=== PATIENT | female | born 1945 | race Caucasian/White ===

== ENCOUNTER 2020-04-14 14:16 | Inpatient (IN) ==
[2020-04-14] MEDS ORDERED: SODIUM CHLORIDE 0.9% 500 ML IV STA ×2 (14:54→15:58)
[2020-04-14] MEDS ORDERED: ONDANSETRON 4 MG/2 ML VIAL IV ONE (14:54)
[2020-04-14 15:14] LABS: Basophils % 0.1 % (0.0-0.8); Hematocrit 39.2 VOL% (35.7-47.0); Hemoglobin 12.7 GM/DL (12.0-16.0); Immature Granulocytes % 0.6 %; Immature Granulocytes Absolute 0.05 #; Lymphocytes # 1.4 10*3/uL (1.4-4.0); Mean Corpuscular HGB Conc 32.4 GM/DL (32-36); Mean Corpuscular Volume 97.3 FL (87-102); Mean Platelet Volume 9.4 FL (9.6-12.0); Monocytes % 5.2 % (1.7-12.7); Neutrophils % 78.1 % (38.7-73.9); Platelet Count 204 T/CUMM (130-400); Red Blood Count 4.03 MC/CUMM (3.8-5.5); Red Cell Distribution Width 15.4 % (9.3-17.3); White Blood Count 8.5 T/CUMM (4-12)
[2020-04-14 15:27] LABS: PT Patient Result 11.1 SECS (9.8-11.9)
[2020-04-14 15:35] LABS: Alanine Aminotransferase 57 U/L (13-56); Albumin 3.1 G/DL (3.4-5.0); Alkaline Phosphatase 53 U/L (45-117); Aspartate Amino Transferase 55 U/L (0-37); Bilirubin,Total < 0.39 MG/DL (0.2-1.0); Blood Urea Nitrogen 16 MG/DL (7-18); Calcium 8.8 MG/DL (8.5-10.1); Estimated Glom Filtration Rate 52 ML/MIN; Glucose 145 MG/DL (74-106); Total Protein 6.5 G/DL (6.4-8.3); Troponin I 0.027 NG/ML (0.00-0.045)
[2020-04-14] MEDS ORDERED: LEVOFLOXACIN INJ 750 MG in PREMIX 1 EACH IV STA (15:40)
[2020-04-14] MEDS: DEXAMETHASONE 10 MG/1 ML VIAL IV SCH (15:48)
[2020-04-14] MEDS ORDERED: LACTULOSE 20 GM/30 ML UDCUP PO PRN (16:07)
[2020-04-14] MEDS ORDERED: diphenhydrAMINE CAP 25 MG CAPSULE PO PRN (16:07)
[2020-04-14] MEDS ORDERED: NICOTINE 21 MG/24 HR PATCH TRANSDERM PRN (16:07)
[2020-04-14] MEDS ORDERED: DEXTROSE 50% 25 GM/50 ML VIAL IV PRN (16:07)
[2020-04-14] MEDS ORDERED: SIMETHICONE CHEW 125 MG TABLET PO PRN (16:07)
[2020-04-14] MEDS ORDERED: ONDANSETRON 4 MG/2 ML VIAL IV PRN (16:07)
[2020-04-14] MEDS ORDERED: GLUCAGON 1 MG VIAL IM PRN (16:07)
[2020-04-14] MEDS ORDERED: ALUMINUM/MAGNES/SIMETH MAX STR 30 ML UDCUP PO PRN (16:07)
[2020-04-14] MEDS ORDERED: traZODone 50 MG TABLET PO PRN (16:07)
[2020-04-14] MEDS ORDERED: ZALEPLON 5 MG CAPSULE PO PRN (16:07)
[2020-04-14] MEDS ORDERED: ACETAMINOPHEN 325 MG TABLET PO PRN (16:07)
[2020-04-14] MEDS ORDERED: hydrALAZINE 20 MG/1 ML VIAL IV PRN (16:07)
[2020-04-14] MEDS ORDERED: NON-FORMULARY MEDICATION (Albuterol Sulfate [Proair Hfa] 90 MCG/PUFF HFA aerosol inhaler) INH PRN (16:20)
[2020-04-14 16:57] LABS: Ferritin 3327.5 ng/ml (8-252)
[2020-04-14 17:16] LABS: ABG Base Excess -2.3 MMOL/L (-2.5-2.5); ABG HCO3 22.4 MMOL/L (20-26); ABG Oxygen Saturation 95.9 % (95-100); ABG PCO2 40.2 MM HG (35-48); ABG PH 7.363 (7.35-7.45); ABG PO2 86.6 MM HG (80-95); ABG TCO2 20.3 MMOL/L (23-27)
[2020-04-14] MEDS: SODIUM CHLORIDE 0.9% 1,000 ML IV SCH (18:48)
[2020-04-14] MEDS: ALBUTEROL INHALER 18 GM INH SCH ×2 (19:45→21:45)
[2020-04-14] MEDS ORDERED: REMDESIVIR 200 MG in SODIUM CHLORIDE 0.9% 210 ML IV ONE (20:00)
[2020-04-14] MEDS ORDERED: [UNRECOGNIZED DRUG - REMARK] BOTH NARES SCH (21:00)
[2020-04-14] MEDS ORDERED: BEPOTASTINE BESILATE BOTH EYES SCH (21:00)
[2020-04-14] MEDS ORDERED: SODIUM CHLORIDE 0.9% 100 ML IV ONE (21:27)
[2020-04-14] MEDS: CYCLOBENZAPRINE 10 MG TABLET PO SCH (21:45)
[2020-04-14] MEDS: GABAPENTIN 300 MG CAPSULE PO SCH (21:45)
[2020-04-14] MEDS: FAMOTIDINE 20 MG TABLET PO SCH (21:45)
[2020-04-14] MEDS: ASCORBIC ACID 500 MG TABLET PO SCH (21:45)
[2020-04-14] MEDS: PRAMIPEXOLE 0.25 MG TABLET PO SCH (21:45)
[2020-04-14] MEDS: BUDESONIDE/FORMOTEROL 160-4.5 INHALER 6 GM INH SCH (21:45)
[2020-04-14] MEDS: ENOXAPARIN 60 MG/0.6 ML SYRINGE SUBCUT SCH (21:45)
[2020-04-14] MEDS: cefTRIAXone 1,000 MG in SYRINGE 1 EACH IV SCH (22:17)
[2020-04-15] MEDS: ALBUTEROL INHALER 18 GM INH SCH ×4 (01:17→19:42)
[2020-04-15 04:12] LABS: Allen Test Positive
[2020-04-15 04:27] LABS: ABG Base Excess -2.4 MMOL/L (-2.5-2.5); ABG HCO3 22.4 MMOL/L (20-26); ABG Oxygen Saturation 98.2 % (95-100); ABG PCO2 44.3 MM HG (35-48); ABG PH 7.334 (7.35-7.45); ABG TCO2 21.1 MMOL/L (23-27)
[2020-04-15 04:34] LABS: Hematocrit 38.7 VOL% (35.7-47.0); Hemoglobin 12.5 GM/DL (12.0-16.0); Immature Granulocytes % 0.6 %; Immature Granulocytes Absolute 0.03 #; Lymphocytes # 1.3 10*3/uL (1.4-4.0); Lymphocytes % 24.7 % (21.3-54.2); Mean Corpuscular HGB Conc 32.3 GM/DL (32-36); Mean Corpuscular Volume 98.5 FL (87-102); Mean Platelet Volume 9.6 FL (9.6-12.0); Monocytes % 6.9 % (1.7-12.7); Neutrophils % 67.8 % (38.7-73.9); Platelet Count 192 T/CUMM (130-400); Red Blood Count 3.93 MC/CUMM (3.8-5.5); Red Cell Distribution Width 15.3 % (9.3-17.3); White Blood Count 5.1 T/CUMM (4-12)
[2020-04-15 05:05] LABS: Ferritin 338.6 ng/ml (8-252); Uric Acid 2.8 MG/DL (2.6-6.0)
[2020-04-15 05:11] LABS: Albumin 2.4 G/DL (3.4-5.0); Bilirubin,Total 0.5 MG/DL (0.2-1.0); Calcium 8.9 MG/DL (8.5-10.1); Risk Ratio 2.49; Total Protein 6.6 G/DL (6.4-8.3); VLDL CHOLESTEROL 27.8 MG/DL
[2020-04-15] MEDS ORDERED: ASCORBIC ACID 250 MG PO SCH (09:00)
[2020-04-15] MEDS ORDERED: CHOLECALCIFEROL 5000 UNIT PO SCH (09:00)
[2020-04-15] MEDS: TOPIRAMATE 25 MG TABLET PO SCH (10:07)
[2020-04-15] MEDS: MONTELUKAST 10 MG TABLET PO SCH (10:07)
[2020-04-15] MEDS: CHOLECALCIFEROL 1,000 UNIT TABLET PO SCH (10:07)
[2020-04-15] MEDS: ZINC GLUCONATE 50 MG TABLET PO SCH (10:07)
[2020-04-15] MEDS: FAMOTIDINE 20 MG TABLET PO SCH ×2 (10:07→21:40)
[2020-04-15] MEDS: atenoloL 50 MG TABLET PO SCH (10:07)
[2020-04-15] MEDS: ASPIRIN EC 81 MG TABLET PO SCH (10:07)
[2020-04-15] MEDS: FENOFIBRATE 145 MG TABLET PO SCH (10:07)
[2020-04-15] MEDS: MULTIVITAMIN (CENTRUM) TABLET PO SCH (10:07)
[2020-04-15] MEDS: DEXAMETHASONE 10 MG/1 ML VIAL IV SCH (10:07)
[2020-04-15] MEDS: PANTOPRAZOLE 40 MG TABLET PO SCH (10:07)
[2020-04-15] MEDS: ASCORBIC ACID 500 MG TABLET PO SCH ×2 (10:07→22:12)
[2020-04-15] MEDS: FEXOFENADINE 180 MG TABLET PO SCH (10:07)
[2020-04-15] MEDS: LEVOTHYROXINE 50 MCG TABLET PO SCH (10:07)
[2020-04-15] MEDS: CALCIUM (CARBONATE)/VITAMIN D 600 MG-400 UNIT TABLET PO SCH (10:07)
[2020-04-15] MEDS: ROSUVASTATIN 20 MG TABLET PO SCH (10:07)
[2020-04-15] MEDS: GABAPENTIN 300 MG CAPSULE PO SCH ×3 (10:07→21:40)
[2020-04-15] MEDS: allopurinoL 300 MG TABLET PO SCH (10:07)
[2020-04-15] MEDS: ENOXAPARIN 60 MG/0.6 ML SYRINGE SUBCUT SCH ×2 (10:08→21:40)
[2020-04-15] MEDS: OXYBUTYNIN XL 5 MG TABLET PO SCH (10:45)
[2020-04-15] MEDS: BUDESONIDE/FORMOTEROL 160-4.5 INHALER 6 GM INH SCH ×2 (10:46→21:40)
[2020-04-15] MEDS: MOMETASONE 50 MCG NASAL SPRAY 17 GM BOTTLE BOTH NARES SCH (10:46)
[2020-04-15] MEDS: AZITHROMYCIN INJ 500 MG in SODIUM CHLORIDE 0.9% 250 ML IV SCH (15:02)
[2020-04-15] MEDS: REMDESIVIR 100 MG in SODIUM CHLORIDE 0.9% 100 ML IV SCH (15:56)
[2020-04-15] MEDS: PRAMIPEXOLE 0.25 MG TABLET PO SCH (21:40)
[2020-04-15] MEDS: CYCLOBENZAPRINE 10 MG TABLET PO SCH (21:40)
[2020-04-15] MEDS: cefTRIAXone 1,000 MG in SYRINGE 1 EACH IV SCH (21:40)
[2020-04-15] MEDS: SODIUM CHLORIDE 0.9% 1,000 ML IV SCH ×2 (22:09→22:39)
[2020-04-16] MEDS: ALBUTEROL INHALER 18 GM INH SCH ×4 (00:06→19:01)
[2020-04-16] MEDS: SODIUM CHLORIDE 0.9% 1,000 ML IV SCH ×2 (03:15→13:24)
[2020-04-16] MEDS: guaiFENesin/DM ER 600-30 MG TABLET PO PRN ×2 (04:10→10:17)
[2020-04-16 05:13] LABS: ABG HCO3 25.2 MMOL/L (20-26); ABG Oxygen Saturation 93.7 % (95-100); ABG PCO2 41.3 MM HG (35-48); ABG PH 7.405 (7.35-7.45); ABG PO2 68.7 MM HG (80-95); ABG TCO2 22.9 MMOL/L (23-27); Allen Test Positive
[2020-04-16 05:24] LABS: Basophils % 0.1 % (0.0-0.8); Hematocrit 38.1 VOL% (35.7-47.0); Hemoglobin 12.4 GM/DL (12.0-16.0); Immature Granulocytes % 0.7 %; Immature Granulocytes Absolute 0.06 #; Lymphocytes # 1.8 10*3/uL (1.4-4.0); Lymphocytes % 21.4 % (21.3-54.2); Mean Corpuscular HGB Conc 32.5 GM/DL (32-36); Mean Corpuscular Volume 97.7 FL (87-102); Mean Platelet Volume 9.4 FL (9.6-12.0); Monocytes % 5.8 % (1.7-12.7); Platelet Count 233 T/CUMM (130-400); Red Cell Distribution Width 15.1 % (9.3-17.3); White Blood Count 8.3 T/CUMM (4-12)
[2020-04-16 05:43] LABS: Alanine Aminotransferase 45 U/L (13-56); Albumin 2.6 G/DL (3.4-5.0); Alkaline Phosphatase 44 U/L (45-117); Aspartate Amino Transferase 41 U/L (0-37); Bilirubin,Total < 0.39 MG/DL (0.2-1.0); Blood Urea Nitrogen 21 MG/DL (7-18); Estimated Glom Filtration Rate 75 ML/MIN; Glucose 132 MG/DL (74-106); Total Protein 6.3 G/DL (6.4-8.3)
[2020-04-16 05:45] LABS: Calcium 9.2 MG/DL (8.5-10.1); Osmolality,Calculated 290.8 MOS/KG (273-304)
[2020-04-16 05:47] LABS: Ferritin 457.4 ng/ml (8-252)
[2020-04-16] MEDS: FEXOFENADINE 180 MG TABLET PO SCH (10:17)
[2020-04-16] MEDS: atenoloL 50 MG TABLET PO SCH (10:17)
[2020-04-16] MEDS: ASCORBIC ACID 500 MG TABLET PO SCH ×2 (10:17→20:30)
[2020-04-16] MEDS: DOCUSATE SODIUM 100 MG CAPSULE PO PRN (10:18)
[2020-04-16] MEDS: MONTELUKAST 10 MG TABLET PO SCH (10:18)
[2020-04-16] MEDS: ZINC GLUCONATE 50 MG TABLET PO SCH (10:18)
[2020-04-16] MEDS: CHOLECALCIFEROL 1,000 UNIT TABLET PO SCH (10:18)
[2020-04-16] MEDS: ROSUVASTATIN 20 MG TABLET PO SCH (10:19)
[2020-04-16] MEDS: ASPIRIN EC 81 MG TABLET PO SCH (10:19)
[2020-04-16] MEDS: FENOFIBRATE 145 MG TABLET PO SCH (10:19)
[2020-04-16] MEDS: TOPIRAMATE 25 MG TABLET PO SCH (10:20)
[2020-04-16] MEDS: MULTIVITAMIN (CENTRUM) TABLET PO SCH (10:20)
[2020-04-16] MEDS: GABAPENTIN 300 MG CAPSULE PO SCH ×3 (10:20→20:30)
[2020-04-16] MEDS: CALCIUM (CARBONATE)/VITAMIN D 600 MG-400 UNIT TABLET PO SCH (10:20)
[2020-04-16] MEDS: ENOXAPARIN 60 MG/0.6 ML SYRINGE SUBCUT SCH ×2 (10:21→20:30)
[2020-04-16] MEDS: DEXAMETHASONE 10 MG/1 ML VIAL IV SCH (10:21)
[2020-04-16] MEDS: MOMETASONE 50 MCG NASAL SPRAY 17 GM BOTTLE BOTH NARES SCH (10:22)
[2020-04-16] MEDS: BUDESONIDE/FORMOTEROL 160-4.5 INHALER 6 GM INH SCH ×2 (10:23→20:30)
[2020-04-16] MEDS: FAMOTIDINE 20 MG TABLET PO SCH ×2 (10:23→20:30)
[2020-04-16] MEDS: LEVOTHYROXINE 50 MCG TABLET PO SCH (10:24)
[2020-04-16] MEDS: allopurinoL 300 MG TABLET PO SCH (10:24)
[2020-04-16] MEDS: REMDESIVIR 100 MG in SODIUM CHLORIDE 0.9% 100 ML IV SCH (10:25)
[2020-04-16] MEDS: AZITHROMYCIN INJ 500 MG in SODIUM CHLORIDE 0.9% 250 ML IV SCH (11:05)
[2020-04-16] MEDS: PANTOPRAZOLE 40 MG TABLET PO SCH (11:05)
[2020-04-16] MEDS: OXYBUTYNIN XL 5 MG TABLET PO SCH (11:05)
[2020-04-16] MEDS: CYCLOBENZAPRINE 10 MG TABLET PO SCH (20:30)
[2020-04-16] MEDS: PRAMIPEXOLE 0.25 MG TABLET PO SCH (20:30)
[2020-04-16] MEDS: cefTRIAXone 1,000 MG in SYRINGE 1 EACH IV SCH (20:30)
[2020-04-17] MEDS: ALBUTEROL INHALER 18 GM INH SCH ×4 (01:22→18:00)
[2020-04-17] MEDS: SODIUM CHLORIDE 0.9% 1,000 ML IV SCH ×3 (01:40→14:51)
[2020-04-17 04:30] LABS: Allen Test Positive
[2020-04-17 04:34] LABS: ABG HCO3 25.6 MMOL/L (20-26); ABG Oxygen Saturation 94.4 % (95-100); ABG PCO2 40.3 MM HG (35-48); ABG PO2 73.6 MM HG (80-95); ABG TCO2 26.8 MMOL/L (23-27)
[2020-04-17 05:06] LABS: Basophils % 0.1 % (0.0-0.8); Hematocrit 36.7 VOL% (35.7-47.0); Hemoglobin 11.9 GM/DL (12.0-16.0); Immature Granulocytes % 0.6 %; Immature Granulocytes Absolute 0.05 #; Lymphocytes # 1.8 10*3/uL (1.4-4.0); Lymphocytes % 22.6 % (21.3-54.2); Mean Corpuscular HGB Conc 32.4 GM/DL (32-36); Mean Corpuscular Volume 97.6 FL (87-102); Mean Platelet Volume 9.4 FL (9.6-12.0); Neutrophils % 69.7 % (38.7-73.9); Platelet Count 233 T/CUMM (130-400); Red Blood Count 3.76 MC/CUMM (3.8-5.5); White Blood Count 7.8 T/CUMM (4-12)
[2020-04-17 05:31] LABS: Ferritin 409.2 ng/ml (8-252)
[2020-04-17 05:39] LABS: Albumin 2.4 G/DL (3.4-5.0); Bilirubin,Total 0.5 MG/DL (0.2-1.0); Calcium 8.9 MG/DL (8.5-10.1); Osmolality,Calculated 294.6 MOS/KG (273-304); Total Protein 6.2 G/DL (6.4-8.3)
[2020-04-17] MEDS: ENOXAPARIN 60 MG/0.6 ML SYRINGE SUBCUT SCH ×2 (08:34→22:11)
[2020-04-17] MEDS: ASPIRIN EC 81 MG TABLET PO SCH (08:34)
[2020-04-17] MEDS: CALCIUM CARBONATE CHEW 500 MG TABLET PO PRN (08:34)
[2020-04-17] MEDS: CHOLECALCIFEROL 1,000 UNIT TABLET PO SCH (08:34)
[2020-04-17] MEDS: ROSUVASTATIN 20 MG TABLET PO SCH (08:35)
[2020-04-17] MEDS: GABAPENTIN 300 MG CAPSULE PO SCH ×3 (08:35→22:12)
[2020-04-17] MEDS: guaiFENesin/DM ER 600-30 MG TABLET PO PRN (08:35)
[2020-04-17] MEDS: MONTELUKAST 10 MG TABLET PO SCH (08:35)
[2020-04-17] MEDS: ZINC GLUCONATE 50 MG TABLET PO SCH (08:35)
[2020-04-17] MEDS: LEVOTHYROXINE 50 MCG TABLET PO SCH (08:35)
[2020-04-17] MEDS: CALCIUM (CARBONATE)/VITAMIN D 600 MG-400 UNIT TABLET PO SCH (08:36)
[2020-04-17] MEDS: MULTIVITAMIN (CENTRUM) TABLET PO SCH (08:36)
[2020-04-17] MEDS: OXYBUTYNIN XL 5 MG TABLET PO SCH (08:36)
[2020-04-17] MEDS: ASCORBIC ACID 500 MG TABLET PO SCH ×2 (08:36→22:13)
[2020-04-17] MEDS: DOCUSATE SODIUM 100 MG CAPSULE PO PRN (08:36)
[2020-04-17] MEDS: FEXOFENADINE 180 MG TABLET PO SCH (08:36)
[2020-04-17] MEDS: REMDESIVIR 100 MG in SODIUM CHLORIDE 0.9% 100 ML IV SCH (08:37)
[2020-04-17] MEDS: allopurinoL 300 MG TABLET PO SCH (08:37)
[2020-04-17] MEDS: TOPIRAMATE 25 MG TABLET PO SCH (08:37)
[2020-04-17] MEDS: atenoloL 50 MG TABLET PO SCH (08:37)
[2020-04-17] MEDS: FENOFIBRATE 145 MG TABLET PO SCH (08:37)
[2020-04-17] MEDS: MOMETASONE 50 MCG NASAL SPRAY 17 GM BOTTLE BOTH NARES SCH (08:38)
[2020-04-17] MEDS: DEXAMETHASONE 10 MG/1 ML VIAL IV SCH (08:38)
[2020-04-17] MEDS: PANTOPRAZOLE 40 MG TABLET PO SCH (08:38)
[2020-04-17] MEDS: FAMOTIDINE 20 MG TABLET PO SCH ×2 (08:38→22:12)
[2020-04-17] MEDS: BISACODYL 5 MG TABLET PO PRN (08:38)
[2020-04-17] MEDS: BUDESONIDE/FORMOTEROL 160-4.5 INHALER 6 GM INH SCH ×2 (08:39→22:13)
[2020-04-17] MEDS: AZITHROMYCIN INJ 500 MG in SODIUM CHLORIDE 0.9% 250 ML IV SCH (12:05)
[2020-04-17] MEDS ORDERED: SODIUM CHLORIDE 0.9% 1,000 ML IV PRN (13:33)
[2020-04-17] MEDS: NYSTATIN 500,000 UNIT/5 ML UDCUP SWISH/SWAL SCH ×2 (17:59→22:12)
[2020-04-17] MEDS: PRAMIPEXOLE 0.25 MG TABLET PO SCH (22:11)
[2020-04-17] MEDS: CYCLOBENZAPRINE 10 MG TABLET PO SCH (22:11)
[2020-04-17] MEDS: cefTRIAXone 1,000 MG in SYRINGE 1 EACH IV SCH (22:12)
[2020-04-17] MEDS: HYDROcodone/CHLORPHENIRAMINE ER 5 ML UDCUP PO PRN (22:13)
[2020-04-18] MEDS: ALBUTEROL INHALER 18 GM INH SCH ×4 (02:21→18:52)
[2020-04-18] MEDS: SODIUM CHLORIDE 0.9% 1,000 ML IV SCH ×2 (03:33→16:25)
[2020-04-18 04:10] LABS: ABG Base Excess 2.7 MMOL/L (-2.5-2.5); ABG HCO3 26.6 MMOL/L (20-26); ABG Oxygen Saturation 91.4 % (95-100); ABG PCO2 50.4 MM HG (35-48); ABG PH 7.366 (7.35-7.45); ABG PO2 64.2 MM HG (80-95); ABG TCO2 25.9 MMOL/L (23-27); Allen Test Positive
[2020-04-18 05:14] LABS: Basophils % 0.1 % (0.0-0.8); Hematocrit 36.3 VOL% (35.7-47.0); Hemoglobin 11.5 GM/DL (12.0-16.0); Immature Granulocytes Absolute 0.16 #; Lymphocytes # 2.2 10*3/uL (1.4-4.0); Lymphocytes % 27.6 % (21.3-54.2); Mean Corpuscular HGB Conc 31.7 GM/DL (32-36); Mean Corpuscular Volume 98.9 FL (87-102); Mean Platelet Volume 9.2 FL (9.6-12.0); Monocytes % 5.8 % (1.7-12.7); Neutrophils % 64.5 % (38.7-73.9); Platelet Count 230 T/CUMM (130-400); Red Blood Count 3.67 MC/CUMM (3.8-5.5); Red Cell Distribution Width 14.9 % (9.3-17.3)
[2020-04-18 05:49] LABS: Albumin 2.3 G/DL (3.4-5.0); Bilirubin,Total 0.4 MG/DL (0.2-1.0); Calcium 8.7 MG/DL (8.5-10.1); Ferritin 343.5 ng/ml (8-252); Osmolality,Calculated 292.6 MOS/KG (273-304)
[2020-04-18 05:54] LABS: Hypochromasia Slight; Microcytosis Slight; Platelet Estimate Adequate
[2020-04-18] MEDS: GABAPENTIN 300 MG CAPSULE PO SCH ×3 (09:29→21:27)
[2020-04-18] MEDS: CHOLECALCIFEROL 1,000 UNIT TABLET PO SCH (09:30)
[2020-04-18] MEDS: OXYBUTYNIN XL 5 MG TABLET PO SCH (09:30)
[2020-04-18] MEDS: ASPIRIN EC 81 MG TABLET PO SCH (09:30)
[2020-04-18] MEDS: LEVOTHYROXINE 50 MCG TABLET PO SCH (09:30)
[2020-04-18] MEDS: FENOFIBRATE 145 MG TABLET PO SCH (09:30)
[2020-04-18] MEDS: atenoloL 50 MG TABLET PO SCH (09:30)
[2020-04-18] MEDS: CALCIUM CARBONATE CHEW 500 MG TABLET PO PRN (09:30)
[2020-04-18] MEDS: MULTIVITAMIN (CENTRUM) TABLET PO SCH (09:30)
[2020-04-18] MEDS: guaiFENesin/DM ER 600-30 MG TABLET PO PRN ×2 (09:30→16:25)
[2020-04-18] MEDS: NYSTATIN 500,000 UNIT/5 ML UDCUP SWISH/SWAL SCH ×4 (09:30→21:29)
[2020-04-18] MEDS: CALCIUM (CARBONATE)/VITAMIN D 600 MG-400 UNIT TABLET PO SCH (09:31)
[2020-04-18] MEDS: MONTELUKAST 10 MG TABLET PO SCH (09:31)
[2020-04-18] MEDS: DOCUSATE SODIUM 100 MG CAPSULE PO PRN (09:31)
[2020-04-18] MEDS: TOPIRAMATE 25 MG TABLET PO SCH (09:31)
[2020-04-18] MEDS: allopurinoL 300 MG TABLET PO SCH (09:31)
[2020-04-18] MEDS: FEXOFENADINE 180 MG TABLET PO SCH (09:32)
[2020-04-18] MEDS: BUDESONIDE/FORMOTEROL 160-4.5 INHALER 6 GM INH SCH ×2 (09:32→21:29)
[2020-04-18] MEDS: REMDESIVIR 100 MG in SODIUM CHLORIDE 0.9% 100 ML IV SCH (09:32)
[2020-04-18] MEDS: BISACODYL 5 MG TABLET PO PRN (09:32)
[2020-04-18] MEDS: PANTOPRAZOLE 40 MG TABLET PO SCH (09:32)
[2020-04-18] MEDS: MOMETASONE 50 MCG NASAL SPRAY 17 GM BOTTLE BOTH NARES SCH (09:33)
[2020-04-18] MEDS: FAMOTIDINE 20 MG TABLET PO SCH ×2 (09:33→21:29)
[2020-04-18] MEDS: ENOXAPARIN 60 MG/0.6 ML SYRINGE SUBCUT SCH ×2 (09:33→21:27)
[2020-04-18] MEDS: DEXAMETHASONE 10 MG/1 ML VIAL IV SCH (09:35)
[2020-04-18] MEDS: ROSUVASTATIN 20 MG TABLET PO SCH (12:00)
[2020-04-18] MEDS: ZINC GLUCONATE 50 MG TABLET PO SCH (12:01)
[2020-04-18] MEDS: ASCORBIC ACID 500 MG TABLET PO SCH ×2 (12:01→21:28)
[2020-04-18] MEDS: AZITHROMYCIN INJ 500 MG in SODIUM CHLORIDE 0.9% 250 ML IV SCH (12:01)
[2020-04-18] MEDS: cefTRIAXone 1,000 MG in SYRINGE 1 EACH IV SCH (21:27)
[2020-04-18] MEDS: PRAMIPEXOLE 0.25 MG TABLET PO SCH (21:28)
[2020-04-18] MEDS: HYDROcodone/CHLORPHENIRAMINE ER 5 ML UDCUP PO PRN (21:29)
[2020-04-18] MEDS: CYCLOBENZAPRINE 10 MG TABLET PO SCH (21:29)
[2020-04-19] MEDS: ALBUTEROL INHALER 18 GM INH SCH ×4 (01:46→18:45)
[2020-04-19] MEDS: SODIUM CHLORIDE 0.9% 1,000 ML IV SCH (06:53)
[2020-04-19 07:05] LABS: Basophils % 0.3 % (0.0-0.8); Hematocrit 35.9 VOL% (35.7-47.0); Hemoglobin 11.7 GM/DL (12.0-16.0); Immature Granulocytes % 2.3 %; Immature Granulocytes Absolute 0.25 #; Lymphocytes # 2.5 10*3/uL (1.4-4.0); Lymphocytes % 22.7 % (21.3-54.2); Mean Corpuscular HGB Conc 32.6 GM/DL (32-36); Mean Corpuscular Volume 97.6 FL (87-102); Mean Platelet Volume 9.6 FL (9.6-12.0); Monocytes % 4.3 % (1.7-12.7); Neutrophils % 70.4 % (38.7-73.9); Platelet Count 248 T/CUMM (130-400); Red Blood Count 3.68 MC/CUMM (3.8-5.5); Red Cell Distribution Width 14.6 % (9.3-17.3); White Blood Count 10.9 T/CUMM (4-12)
[2020-04-19 07:31] LABS: Calcium 8.7 MG/DL (8.5-10.1); Osmolality,Calculated 286.8 MOS/KG (273-304)
[2020-04-19 07:35] LABS: Albumin 2.4 G/DL (3.4-5.0); Bilirubin,Total 0.4 MG/DL (0.2-1.0); Calcium 8.8 MG/DL (8.5-10.1); Ferritin 326.4 ng/ml (8-252); Osmolality,Calculated 290.6 MOS/KG (273-304)
[2020-04-19] MEDS ORDERED: POTASSIUM CHLORIDE 20 MEQ TABLET PO ONE (08:00)
[2020-04-19] MEDS: FENOFIBRATE 145 MG TABLET PO SCH (10:50)
[2020-04-19] MEDS: MONTELUKAST 10 MG TABLET PO SCH (10:50)
[2020-04-19] MEDS: FEXOFENADINE 180 MG TABLET PO SCH (10:50)
[2020-04-19] MEDS: atenoloL 50 MG TABLET PO SCH (10:50)
[2020-04-19] MEDS: OXYBUTYNIN XL 5 MG TABLET PO SCH (10:50)
[2020-04-19] MEDS: ENOXAPARIN 60 MG/0.6 ML SYRINGE SUBCUT SCH ×2 (10:50→21:30)
[2020-04-19] MEDS: ROSUVASTATIN 20 MG TABLET PO SCH (10:50)
[2020-04-19] MEDS: MOMETASONE 50 MCG NASAL SPRAY 17 GM BOTTLE BOTH NARES SCH (10:50)
[2020-04-19] MEDS: HYDROcodone/CHLORPHENIRAMINE ER 5 ML UDCUP PO PRN ×2 (10:50→21:30)
[2020-04-19] MEDS: MULTIVITAMIN (CENTRUM) TABLET PO SCH (10:50)
[2020-04-19] MEDS: FAMOTIDINE 20 MG TABLET PO SCH ×2 (10:50→21:30)
[2020-04-19] MEDS: CHOLECALCIFEROL 1,000 UNIT TABLET PO SCH (10:50)
[2020-04-19] MEDS: CALCIUM (CARBONATE)/VITAMIN D 600 MG-400 UNIT TABLET PO SCH (10:50)
[2020-04-19] MEDS: DEXAMETHASONE 10 MG/1 ML VIAL IV SCH (10:50)
[2020-04-19] MEDS: BUDESONIDE/FORMOTEROL 160-4.5 INHALER 6 GM INH SCH ×2 (10:50→21:30)
[2020-04-19] MEDS: NYSTATIN 500,000 UNIT/5 ML UDCUP SWISH/SWAL SCH ×4 (10:50→21:30)
[2020-04-19] MEDS: PANTOPRAZOLE 40 MG TABLET PO SCH (10:50)
[2020-04-19] MEDS: ZINC GLUCONATE 50 MG TABLET PO SCH (10:50)
[2020-04-19] MEDS: ASPIRIN EC 81 MG TABLET PO SCH (10:50)
[2020-04-19] MEDS: ASCORBIC ACID 500 MG TABLET PO SCH ×2 (10:50→21:30)
[2020-04-19] MEDS: LEVOTHYROXINE 50 MCG TABLET PO SCH (10:50)
[2020-04-19] MEDS: allopurinoL 300 MG TABLET PO SCH (10:50)
[2020-04-19] MEDS: GABAPENTIN 300 MG CAPSULE PO SCH ×3 (10:50→21:30)
[2020-04-19] MEDS: TOPIRAMATE 25 MG TABLET PO SCH (10:50)
[2020-04-19] MEDS: AZITHROMYCIN INJ 500 MG in SODIUM CHLORIDE 0.9% 250 ML IV SCH (12:34)
[2020-04-19] MEDS: PRAMIPEXOLE 0.25 MG TABLET PO SCH (21:30)
[2020-04-19] MEDS: cefTRIAXone 1,000 MG in SYRINGE 1 EACH IV SCH (21:30)
[2020-04-19] MEDS: guaiFENesin/DM ER 600-30 MG TABLET PO PRN (21:30)
[2020-04-19] MEDS: CYCLOBENZAPRINE 10 MG TABLET PO SCH (21:30)
[2020-04-20] MEDS: ALBUTEROL INHALER 18 GM INH SCH ×4 (01:38→21:45)
[2020-04-20 05:50] LABS: Calcium 9.1 MG/DL (8.5-10.1)
[2020-04-20] MEDS: FEXOFENADINE 180 MG TABLET PO SCH (09:38)
[2020-04-20] MEDS: OXYBUTYNIN XL 5 MG TABLET PO SCH (09:38)
[2020-04-20] MEDS: MONTELUKAST 10 MG TABLET PO SCH (09:38)
[2020-04-20] MEDS: ASCORBIC ACID 500 MG TABLET PO SCH ×2 (09:38→21:40)
[2020-04-20] MEDS: ASPIRIN EC 81 MG TABLET PO SCH (09:38)
[2020-04-20] MEDS: ROSUVASTATIN 20 MG TABLET PO SCH (09:38)
[2020-04-20] MEDS: CALCIUM (CARBONATE)/VITAMIN D 600 MG-400 UNIT TABLET PO SCH (09:38)
[2020-04-20] MEDS: ZINC GLUCONATE 50 MG TABLET PO SCH (09:39)
[2020-04-20] MEDS: CHOLECALCIFEROL 1,000 UNIT TABLET PO SCH (09:39)
[2020-04-20] MEDS: MULTIVITAMIN (CENTRUM) TABLET PO SCH (09:39)
[2020-04-20] MEDS: LEVOTHYROXINE 50 MCG TABLET PO SCH (09:40)
[2020-04-20] MEDS: atenoloL 50 MG TABLET PO SCH (09:40)
[2020-04-20] MEDS: GABAPENTIN 300 MG CAPSULE PO SCH ×3 (09:40→21:40)
[2020-04-20] MEDS: allopurinoL 300 MG TABLET PO SCH (09:40)
[2020-04-20] MEDS: FENOFIBRATE 145 MG TABLET PO SCH (09:40)
[2020-04-20] MEDS: NYSTATIN 500,000 UNIT/5 ML UDCUP SWISH/SWAL SCH ×4 (09:40→21:40)
[2020-04-20] MEDS: TOPIRAMATE 25 MG TABLET PO SCH (09:40)
[2020-04-20] MEDS: FAMOTIDINE 20 MG TABLET PO SCH ×2 (09:40→21:40)
[2020-04-20] MEDS: DEXAMETHASONE 10 MG/1 ML VIAL IV SCH (09:41)
[2020-04-20] MEDS: HYDROcodone/CHLORPHENIRAMINE ER 5 ML UDCUP PO PRN ×2 (09:41→21:40)
[2020-04-20] MEDS: BUDESONIDE/FORMOTEROL 160-4.5 INHALER 6 GM INH SCH ×2 (09:42→21:59)
[2020-04-20] MEDS: MOMETASONE 50 MCG NASAL SPRAY 17 GM BOTTLE BOTH NARES SCH (09:42)
[2020-04-20] MEDS: ENOXAPARIN 60 MG/0.6 ML SYRINGE SUBCUT SCH ×2 (09:45→21:39)
[2020-04-20] MEDS: AZITHROMYCIN INJ 500 MG in SODIUM CHLORIDE 0.9% 250 ML IV SCH (14:11)
[2020-04-20] MEDS: CYCLOBENZAPRINE 10 MG TABLET PO SCH (21:40)
[2020-04-20] MEDS: guaiFENesin/DM ER 600-30 MG TABLET PO PRN (21:40)
[2020-04-20] MEDS: PRAMIPEXOLE 0.25 MG TABLET PO SCH (21:41)
[2020-04-20] MEDS: cefTRIAXone 1,000 MG in SYRINGE 1 EACH IV SCH (21:58)
[2020-04-21] MEDS: ALBUTEROL INHALER 18 GM INH SCH ×4 (01:56→20:49)
[2020-04-21] MEDS: GABAPENTIN 300 MG CAPSULE PO SCH ×3 (08:33→20:50)
[2020-04-21] MEDS: HYDROcodone/CHLORPHENIRAMINE ER 5 ML UDCUP PO PRN ×2 (08:34→20:51)
[2020-04-21] MEDS: ROSUVASTATIN 20 MG TABLET PO SCH (08:34)
[2020-04-21] MEDS: FEXOFENADINE 180 MG TABLET PO SCH (08:34)
[2020-04-21] MEDS: ZINC GLUCONATE 50 MG TABLET PO SCH (08:34)
[2020-04-21] MEDS: atenoloL 50 MG TABLET PO SCH (08:36)
[2020-04-21] MEDS: CHOLECALCIFEROL 1,000 UNIT TABLET PO SCH (08:36)
[2020-04-21] MEDS: MONTELUKAST 10 MG TABLET PO SCH (08:36)
[2020-04-21] MEDS: ASPIRIN EC 81 MG TABLET PO SCH (08:36)
[2020-04-21] MEDS: CALCIUM (CARBONATE)/VITAMIN D 600 MG-400 UNIT TABLET PO SCH (08:36)
[2020-04-21] MEDS: TOPIRAMATE 25 MG TABLET PO SCH (08:37)
[2020-04-21] MEDS: ASCORBIC ACID 500 MG TABLET PO SCH ×2 (08:37→20:50)
[2020-04-21] MEDS: allopurinoL 300 MG TABLET PO SCH (08:37)
[2020-04-21] MEDS: OXYBUTYNIN XL 5 MG TABLET PO SCH (08:37)
[2020-04-21] MEDS: LEVOTHYROXINE 50 MCG TABLET PO SCH (08:37)
[2020-04-21] MEDS: FENOFIBRATE 145 MG TABLET PO SCH (08:38)
[2020-04-21] MEDS: FAMOTIDINE 20 MG TABLET PO SCH ×2 (08:38→20:50)
[2020-04-21] MEDS: MULTIVITAMIN (CENTRUM) TABLET PO SCH (08:38)
[2020-04-21] MEDS: NYSTATIN 500,000 UNIT/5 ML UDCUP SWISH/SWAL SCH ×4 (08:38→20:50)
[2020-04-21] MEDS: ENOXAPARIN 60 MG/0.6 ML SYRINGE SUBCUT SCH ×2 (08:38→20:49)
[2020-04-21] MEDS: DEXAMETHASONE 10 MG/1 ML VIAL IV SCH (08:40)
[2020-04-21] MEDS: MOMETASONE 50 MCG NASAL SPRAY 17 GM BOTTLE BOTH NARES SCH (08:40)
[2020-04-21] MEDS: BUDESONIDE/FORMOTEROL 160-4.5 INHALER 6 GM INH SCH ×2 (08:40→20:49)
[2020-04-21] MEDS: AZITHROMYCIN INJ 500 MG in SODIUM CHLORIDE 0.9% 250 ML IV SCH (13:49)
[2020-04-21] MEDS: MELATONIN 3 MG TABLET PO PRN (20:50)
[2020-04-21] MEDS: DOCUSATE SODIUM 100 MG CAPSULE PO PRN (20:50)
[2020-04-21] MEDS: CYCLOBENZAPRINE 10 MG TABLET PO SCH (20:50)
[2020-04-21] MEDS: PRAMIPEXOLE 0.25 MG TABLET PO SCH (20:50)
[2020-04-21] MEDS: cefTRIAXone 1,000 MG in SYRINGE 1 EACH IV SCH (21:38)
[2020-04-22] MEDS: ALBUTEROL INHALER 18 GM INH SCH ×4 (01:50→21:22)
[2020-04-22] MEDS: FEXOFENADINE 180 MG TABLET PO SCH (08:04)
[2020-04-22] MEDS: ASPIRIN EC 81 MG TABLET PO SCH (08:04)
[2020-04-22] MEDS: MULTIVITAMIN (CENTRUM) TABLET PO SCH (08:05)
[2020-04-22] MEDS: CALCIUM (CARBONATE)/VITAMIN D 600 MG-400 UNIT TABLET PO SCH (08:05)
[2020-04-22] MEDS: DEXAMETHASONE 10 MG/1 ML VIAL IV SCH (08:06)
[2020-04-22] MEDS: MOMETASONE 50 MCG NASAL SPRAY 17 GM BOTTLE BOTH NARES SCH (08:08)
[2020-04-22] MEDS: MONTELUKAST 10 MG TABLET PO SCH (08:08)
[2020-04-22] MEDS: FAMOTIDINE 20 MG TABLET PO SCH ×2 (08:08→21:21)
[2020-04-22] MEDS: BUDESONIDE/FORMOTEROL 160-4.5 INHALER 6 GM INH SCH ×2 (08:08→21:23)
[2020-04-22] MEDS: GABAPENTIN 300 MG CAPSULE PO SCH ×3 (08:08→21:20)
[2020-04-22] MEDS: NYSTATIN 500,000 UNIT/5 ML UDCUP SWISH/SWAL SCH ×4 (08:08→21:21)
[2020-04-22] MEDS: ENOXAPARIN 60 MG/0.6 ML SYRINGE SUBCUT SCH ×2 (08:08→21:22)
[2020-04-22] MEDS: TOPIRAMATE 25 MG TABLET PO SCH (08:09)
[2020-04-22] MEDS: ASCORBIC ACID 500 MG TABLET PO SCH ×2 (08:09→21:21)
[2020-04-22] MEDS: atenoloL 50 MG TABLET PO SCH (08:09)
[2020-04-22] MEDS: FENOFIBRATE 145 MG TABLET PO SCH (08:09)
[2020-04-22] MEDS: LEVOTHYROXINE 50 MCG TABLET PO SCH (08:09)
[2020-04-22] MEDS: CHOLECALCIFEROL 1,000 UNIT TABLET PO SCH (08:09)
[2020-04-22] MEDS: allopurinoL 300 MG TABLET PO SCH (08:10)
[2020-04-22] MEDS: ZINC GLUCONATE 50 MG TABLET PO SCH (08:10)
[2020-04-22] MEDS: ROSUVASTATIN 20 MG TABLET PO SCH (09:15)
[2020-04-22] MEDS: OXYBUTYNIN XL 5 MG TABLET PO SCH (09:15)
[2020-04-22] MEDS: PRAMIPEXOLE 0.25 MG TABLET PO SCH (21:21)
[2020-04-22] MEDS: CYCLOBENZAPRINE 10 MG TABLET PO SCH (21:21)
[2020-04-22] MEDS: MELATONIN 3 MG TABLET PO PRN (21:21)
[2020-04-22] MEDS: DOCUSATE SODIUM 100 MG CAPSULE PO PRN (21:21)
[2020-04-23] MEDS: ALBUTEROL INHALER 18 GM INH SCH ×4 (03:21→20:54)
[2020-04-23 05:42] LABS: Basophils # 0.1 10*3/uL (0.0-0.2); Basophils % 0.3 % (0.0-0.8); Hematocrit 41.7 VOL% (35.7-47.0); Hemoglobin 13.6 GM/DL (12.0-16.0); Immature Granulocytes % 3.3 %; Immature Granulocytes Absolute 0.48 #; Lymphocytes % 20.5 % (21.3-54.2); Mean Corpuscular HGB Conc 32.6 GM/DL (32-36); Mean Corpuscular Volume 96.8 FL (87-102); Mean Platelet Volume 9.9 FL (9.6-12.0); Monocytes % 4.7 % (1.7-12.7); NRBC # 0.02 10*3/uL; Neutrophils % 71.2 % (38.7-73.9); Platelet Count 290 T/CUMM (130-400); Red Blood Count 4.31 MC/CUMM (3.8-5.5); Red Cell Distribution Width 14.3 % (9.3-17.3); White Blood Count 14.4 T/CUMM (4-12)
[2020-04-23 05:55] LABS: Calcium 9.4 MG/DL (8.5-10.1)
[2020-04-23] MEDS: ASPIRIN EC 81 MG TABLET PO SCH (08:05)
[2020-04-23] MEDS: MULTIVITAMIN (CENTRUM) TABLET PO SCH (08:05)
[2020-04-23] MEDS: CALCIUM (CARBONATE)/VITAMIN D 600 MG-400 UNIT TABLET PO SCH (08:05)
[2020-04-23] MEDS: ENOXAPARIN 60 MG/0.6 ML SYRINGE SUBCUT SCH ×2 (08:06→20:54)
[2020-04-23] MEDS: DEXAMETHASONE 4 MG TABLET PO SCH (08:06)
[2020-04-23] MEDS: OXYBUTYNIN XL 5 MG TABLET PO SCH (08:06)
[2020-04-23] MEDS: BUDESONIDE/FORMOTEROL 160-4.5 INHALER 6 GM INH SCH ×2 (08:07→20:54)
[2020-04-23] MEDS: LEVOTHYROXINE 50 MCG TABLET PO SCH (08:07)
[2020-04-23] MEDS: GABAPENTIN 300 MG CAPSULE PO SCH ×3 (08:07→20:56)
[2020-04-23] MEDS: MONTELUKAST 10 MG TABLET PO SCH (08:07)
[2020-04-23] MEDS: FAMOTIDINE 20 MG TABLET PO SCH ×2 (08:07→20:55)
[2020-04-23] MEDS: MOMETASONE 50 MCG NASAL SPRAY 17 GM BOTTLE BOTH NARES SCH (08:07)
[2020-04-23] MEDS: NYSTATIN 500,000 UNIT/5 ML UDCUP SWISH/SWAL SCH ×4 (08:07→20:55)
[2020-04-23] MEDS: CHOLECALCIFEROL 1,000 UNIT TABLET PO SCH (08:08)
[2020-04-23] MEDS: allopurinoL 300 MG TABLET PO SCH (08:08)
[2020-04-23] MEDS: ZINC GLUCONATE 50 MG TABLET PO SCH (08:08)
[2020-04-23] MEDS: FENOFIBRATE 145 MG TABLET PO SCH (08:08)
[2020-04-23] MEDS: ASCORBIC ACID 500 MG TABLET PO SCH ×2 (08:08→20:56)
[2020-04-23] MEDS: atenoloL 50 MG TABLET PO SCH (08:08)
[2020-04-23] MEDS: TOPIRAMATE 25 MG TABLET PO SCH (08:08)
[2020-04-23] MEDS: FEXOFENADINE 180 MG TABLET PO SCH (09:17)
[2020-04-23] MEDS: ROSUVASTATIN 20 MG TABLET PO SCH (09:17)
[2020-04-23] MEDS: cefTRIAXone 1,000 MG in SYRINGE 1 EACH IV SCH (14:48)
[2020-04-23] MEDS: MELATONIN 3 MG TABLET PO PRN (20:55)
[2020-04-23] MEDS: CYCLOBENZAPRINE 10 MG TABLET PO SCH (20:55)
[2020-04-23] MEDS: PRAMIPEXOLE 0.25 MG TABLET PO SCH (20:56)
[2020-04-24] MEDS: ALBUTEROL INHALER 18 GM INH SCH ×4 (01:03→18:20)
[2020-04-24] MEDS: HYDROcodone/CHLORPHENIRAMINE ER 5 ML UDCUP PO PRN (09:37)
[2020-04-24] MEDS: DOCUSATE SODIUM 100 MG CAPSULE PO PRN (09:38)
[2020-04-24] MEDS: NYSTATIN 500,000 UNIT/5 ML UDCUP SWISH/SWAL SCH ×4 (09:38→20:49)
[2020-04-24] MEDS: ENOXAPARIN 60 MG/0.6 ML SYRINGE SUBCUT SCH ×2 (09:38→20:52)
[2020-04-24] MEDS: atenoloL 50 MG TABLET PO SCH (09:39)
[2020-04-24] MEDS: ZINC GLUCONATE 50 MG TABLET PO SCH (09:39)
[2020-04-24] MEDS: ASCORBIC ACID 500 MG TABLET PO SCH ×2 (09:39→20:50)
[2020-04-24] MEDS: TOPIRAMATE 25 MG TABLET PO SCH (09:39)
[2020-04-24] MEDS: OXYBUTYNIN XL 5 MG TABLET PO SCH (09:39)
[2020-04-24] MEDS: ROSUVASTATIN 20 MG TABLET PO SCH (09:39)
[2020-04-24] MEDS: FENOFIBRATE 145 MG TABLET PO SCH (09:39)
[2020-04-24] MEDS: FAMOTIDINE 20 MG TABLET PO SCH ×2 (09:39→20:50)
[2020-04-24] MEDS: CALCIUM (CARBONATE)/VITAMIN D 600 MG-400 UNIT TABLET PO SCH (09:39)
[2020-04-24] MEDS: guaiFENesin/DM ER 600-30 MG TABLET PO PRN (09:40)
[2020-04-24] MEDS: GABAPENTIN 300 MG CAPSULE PO SCH ×3 (09:40→20:51)
[2020-04-24] MEDS: allopurinoL 300 MG TABLET PO SCH (09:40)
[2020-04-24] MEDS: ASPIRIN EC 81 MG TABLET PO SCH (09:40)
[2020-04-24] MEDS: MULTIVITAMIN (CENTRUM) TABLET PO SCH (09:40)
[2020-04-24] MEDS: CHOLECALCIFEROL 1,000 UNIT TABLET PO SCH (09:40)
[2020-04-24] MEDS: MONTELUKAST 10 MG TABLET PO SCH (09:40)
[2020-04-24] MEDS: CALCIUM CARBONATE CHEW 500 MG TABLET PO PRN (09:40)
[2020-04-24] MEDS: DEXAMETHASONE 4 MG TABLET PO SCH (09:40)
[2020-04-24] MEDS: BUDESONIDE/FORMOTEROL 160-4.5 INHALER 6 GM INH SCH ×2 (09:41→20:50)
[2020-04-24] MEDS: LEVOTHYROXINE 50 MCG TABLET PO SCH (09:41)
[2020-04-24] MEDS: MOMETASONE 50 MCG NASAL SPRAY 17 GM BOTTLE BOTH NARES SCH (09:41)
[2020-04-24] MEDS: FEXOFENADINE 180 MG TABLET PO SCH (10:44)
[2020-04-24] MEDS: cefTRIAXone 1,000 MG in SYRINGE 1 EACH IV SCH (14:40)
[2020-04-24] MEDS: MELATONIN 3 MG TABLET PO PRN (20:50)
[2020-04-24] MEDS: CYCLOBENZAPRINE 10 MG TABLET PO SCH (20:52)
[2020-04-24] MEDS: PRAMIPEXOLE 0.25 MG TABLET PO SCH (20:52)
[2020-04-24] MEDS ORDERED: HYDROcodone/CHLORPHENIRAMINE ER 5 ML UDCUP PO PRN (21:17)
[2020-04-25] MEDS: ALBUTEROL INHALER 18 GM INH SCH ×3 (00:35→12:33)
[2020-04-25] MEDS: FEXOFENADINE 180 MG TABLET PO SCH (09:02)
[2020-04-25] MEDS: ROSUVASTATIN 20 MG TABLET PO SCH (09:02)
[2020-04-25] MEDS: MULTIVITAMIN (CENTRUM) TABLET PO SCH (09:02)
[2020-04-25] MEDS: CHOLECALCIFEROL 1,000 UNIT TABLET PO SCH (09:02)
[2020-04-25] MEDS: DEXAMETHASONE 4 MG TABLET PO SCH (09:03)
[2020-04-25] MEDS: ASCORBIC ACID 500 MG TABLET PO SCH ×2 (09:03→20:45)
[2020-04-25] MEDS: FAMOTIDINE 20 MG TABLET PO SCH ×2 (09:03→20:46)
[2020-04-25] MEDS: GABAPENTIN 300 MG CAPSULE PO SCH ×3 (09:03→20:46)
[2020-04-25] MEDS: DOCUSATE SODIUM 100 MG CAPSULE PO PRN (09:03)
[2020-04-25] MEDS: CALCIUM (CARBONATE)/VITAMIN D 600 MG-400 UNIT TABLET PO SCH (09:03)
[2020-04-25] MEDS: LEVOTHYROXINE 50 MCG TABLET PO SCH (09:03)
[2020-04-25] MEDS: ASPIRIN EC 81 MG TABLET PO SCH (09:03)
[2020-04-25] MEDS: MONTELUKAST 10 MG TABLET PO SCH (09:03)
[2020-04-25] MEDS: FENOFIBRATE 145 MG TABLET PO SCH (09:04)
[2020-04-25] MEDS: OXYBUTYNIN XL 5 MG TABLET PO SCH (09:04)
[2020-04-25] MEDS: NYSTATIN 500,000 UNIT/5 ML UDCUP SWISH/SWAL SCH ×4 (09:04→20:46)
[2020-04-25] MEDS: ENOXAPARIN 60 MG/0.6 ML SYRINGE SUBCUT SCH ×2 (09:04→20:45)
[2020-04-25] MEDS: atenoloL 50 MG TABLET PO SCH (09:04)
[2020-04-25] MEDS: TOPIRAMATE 25 MG TABLET PO SCH (09:04)
[2020-04-25] MEDS: allopurinoL 300 MG TABLET PO SCH (09:04)
[2020-04-25] MEDS: BUDESONIDE/FORMOTEROL 160-4.5 INHALER 6 GM INH SCH ×2 (09:04→20:46)
[2020-04-25] MEDS: MOMETASONE 50 MCG NASAL SPRAY 17 GM BOTTLE BOTH NARES SCH (09:04)
[2020-04-25] MEDS: ZINC GLUCONATE 50 MG TABLET PO SCH (10:04)
[2020-04-25] MEDS: cefTRIAXone 1,000 MG in SYRINGE 1 EACH IV SCH (16:38)
[2020-04-25] MEDS: PRAMIPEXOLE 0.25 MG TABLET PO SCH (20:45)
[2020-04-25] MEDS: MELATONIN 3 MG TABLET PO PRN (20:45)
[2020-04-25] MEDS: CYCLOBENZAPRINE 10 MG TABLET PO SCH (20:45)
[2020-04-26] MEDS: FEXOFENADINE 180 MG TABLET PO SCH (09:53)
[2020-04-26] MEDS: DEXAMETHASONE 4 MG TABLET PO SCH (09:54)
[2020-04-26] MEDS: allopurinoL 300 MG TABLET PO SCH (09:54)
[2020-04-26] MEDS: ZINC GLUCONATE 50 MG TABLET PO SCH (09:54)
[2020-04-26] MEDS: MONTELUKAST 10 MG TABLET PO SCH (09:54)
[2020-04-26] MEDS: FENOFIBRATE 145 MG TABLET PO SCH (09:55)
[2020-04-26] MEDS: ROSUVASTATIN 20 MG TABLET PO SCH (09:55)
[2020-04-26] MEDS: ASPIRIN EC 81 MG TABLET PO SCH (09:55)
[2020-04-26] MEDS: GABAPENTIN 300 MG CAPSULE PO SCH ×3 (09:55→21:45)
[2020-04-26] MEDS: LEVOTHYROXINE 50 MCG TABLET PO SCH (09:55)
[2020-04-26] MEDS: CHOLECALCIFEROL 1,000 UNIT TABLET PO SCH (09:55)
[2020-04-26] MEDS: ASCORBIC ACID 500 MG TABLET PO SCH ×2 (09:56→21:44)
[2020-04-26] MEDS: FAMOTIDINE 20 MG TABLET PO SCH ×2 (09:56→21:45)
[2020-04-26] MEDS: CALCIUM (CARBONATE)/VITAMIN D 600 MG-400 UNIT TABLET PO SCH (09:56)
[2020-04-26] MEDS: TOPIRAMATE 25 MG TABLET PO SCH (09:56)
[2020-04-26] MEDS: MULTIVITAMIN (CENTRUM) TABLET PO SCH (09:56)
[2020-04-26] MEDS: OXYBUTYNIN XL 5 MG TABLET PO SCH (09:56)
[2020-04-26] MEDS: atenoloL 50 MG TABLET PO SCH (09:56)
[2020-04-26] MEDS: NYSTATIN 500,000 UNIT/5 ML UDCUP SWISH/SWAL SCH ×4 (09:57→21:45)
[2020-04-26] MEDS: ENOXAPARIN 60 MG/0.6 ML SYRINGE SUBCUT SCH ×2 (09:57→21:47)
[2020-04-26] MEDS: BUDESONIDE/FORMOTEROL 160-4.5 INHALER 6 GM INH SCH ×2 (09:58→21:46)
[2020-04-26] MEDS: MOMETASONE 50 MCG NASAL SPRAY 17 GM BOTTLE BOTH NARES SCH (11:54)
[2020-04-26] MEDS: cefTRIAXone 1,000 MG in SYRINGE 1 EACH IV SCH (11:55)
[2020-04-26] MEDS ORDERED: DEXTROSE 50% 25 GM/50 ML VIAL IV PRN (16:34)
[2020-04-26] MEDS: ALBUTEROL 2.5 MG/3 ML NEB RESP TX SCH ×2 (18:13→20:31)
[2020-04-26] MEDS: PRAMIPEXOLE 0.25 MG TABLET PO SCH (21:43)
[2020-04-26] MEDS: CYCLOBENZAPRINE 10 MG TABLET PO SCH (21:44)
[2020-04-26] MEDS: MELATONIN 3 MG TABLET PO PRN (21:45)
[2020-04-26] MEDS: INSULIN LISPRO 100 UNIT/ML SUBCUT SCH (21:47)
[2020-04-27] MEDS: ALBUTEROL 2.5 MG/3 ML NEB RESP TX SCH ×4 (01:09→19:05)
[2020-04-27 05:45] LABS: Basophils % 0.2 % (0.0-0.8); Hematocrit 41.5 VOL% (35.7-47.0); Hemoglobin 13.5 GM/DL (12.0-16.0); Immature Granulocytes % 1.5 %; Immature Granulocytes Absolute 0.19 #; Lymphocytes # 3.1 10*3/uL (1.4-4.0); Lymphocytes % 24.7 % (21.3-54.2); Mean Corpuscular HGB Conc 32.5 GM/DL (32-36); Mean Corpuscular Volume 98.1 FL (87-102); Mean Platelet Volume 10.7 FL (9.6-12.0); Monocytes % 5.8 % (1.7-12.7); Neutrophils % 67.8 % (38.7-73.9); Platelet Count 188 T/CUMM (130-400); Red Blood Count 4.23 MC/CUMM (3.8-5.5); Red Cell Distribution Width 14.5 % (9.3-17.3); White Blood Count 12.5 T/CUMM (4-12)
[2020-04-27 05:59] LABS: Calcium 9.4 MG/DL (8.5-10.1)
[2020-04-27] MEDS: MULTIVITAMIN (CENTRUM) TABLET PO SCH (09:09)
[2020-04-27] MEDS: GABAPENTIN 300 MG CAPSULE PO SCH ×3 (09:09→20:46)
[2020-04-27] MEDS: CHOLECALCIFEROL 1,000 UNIT TABLET PO SCH (09:09)
[2020-04-27] MEDS: FEXOFENADINE 180 MG TABLET PO SCH (09:10)
[2020-04-27] MEDS: ASCORBIC ACID 500 MG TABLET PO SCH ×2 (09:10→20:45)
[2020-04-27] MEDS: TOPIRAMATE 25 MG TABLET PO SCH (09:10)
[2020-04-27] MEDS: allopurinoL 300 MG TABLET PO SCH (09:10)
[2020-04-27] MEDS: DOXYCYCLINE HYCLATE 100 MG CAPSULE PO SCH ×2 (09:10→20:45)
[2020-04-27] MEDS: ROSUVASTATIN 20 MG TABLET PO SCH (09:10)
[2020-04-27] MEDS: ASPIRIN EC 81 MG TABLET PO SCH (09:10)
[2020-04-27] MEDS: NYSTATIN 500,000 UNIT/5 ML UDCUP SWISH/SWAL SCH ×4 (09:11→20:46)
[2020-04-27] MEDS: MONTELUKAST 10 MG TABLET PO SCH (09:11)
[2020-04-27] MEDS: LEVOTHYROXINE 50 MCG TABLET PO SCH (09:11)
[2020-04-27] MEDS: OXYBUTYNIN XL 5 MG TABLET PO SCH (09:11)
[2020-04-27] MEDS: atenoloL 50 MG TABLET PO SCH (09:11)
[2020-04-27] MEDS: CALCIUM (CARBONATE)/VITAMIN D 600 MG-400 UNIT TABLET PO SCH (09:11)
[2020-04-27] MEDS: FENOFIBRATE 145 MG TABLET PO SCH (09:11)
[2020-04-27] MEDS: FAMOTIDINE 20 MG TABLET PO SCH ×2 (09:11→20:45)
[2020-04-27] MEDS: DEXAMETHASONE 4 MG TABLET PO SCH (09:11)
[2020-04-27] MEDS: ZINC GLUCONATE 50 MG TABLET PO SCH (09:11)
[2020-04-27] MEDS: cefTRIAXone 1,000 MG in SYRINGE 1 EACH IV SCH (09:15)
[2020-04-27] MEDS: BUDESONIDE/FORMOTEROL 160-4.5 INHALER 6 GM INH SCH ×2 (09:15→20:50)
[2020-04-27] MEDS: ENOXAPARIN 60 MG/0.6 ML SYRINGE SUBCUT SCH (09:15)
[2020-04-27] MEDS: MOMETASONE 50 MCG NASAL SPRAY 17 GM BOTTLE BOTH NARES SCH (09:15)
[2020-04-27] MEDS: INSULIN LISPRO 100 UNIT/ML SUBCUT SCH ×4 (10:03→20:44)
[2020-04-27] MEDS: CYCLOBENZAPRINE 10 MG TABLET PO SCH (20:44)
[2020-04-27] MEDS: guaiFENesin/DM ER 600-30 MG TABLET PO PRN (20:45)
[2020-04-27] MEDS: PRAMIPEXOLE 0.25 MG TABLET PO SCH (20:45)
[2020-04-27] MEDS: MELATONIN 3 MG TABLET PO PRN (20:46)
[2020-04-28] MEDS: ALBUTEROL 2.5 MG/3 ML NEB RESP TX SCH ×4 (01:23→19:20)
[2020-04-28] MEDS: INSULIN LISPRO 100 UNIT/ML SUBCUT SCH ×4 (07:24→22:41)
[2020-04-28 08:20] LABS: Basophils % 0.1 % (0.0-0.8); Hematocrit 43.6 VOL% (35.7-47.0); Immature Granulocytes % 1.2 %; Immature Granulocytes Absolute 0.18 #; Lymphocytes # 4.3 10*3/uL (1.4-4.0); Lymphocytes % 28.9 % (21.3-54.2); Mean Corpuscular HGB Conc 32.1 GM/DL (32-36); Mean Corpuscular Volume 97.5 FL (87-102); Mean Platelet Volume 10.2 FL (9.6-12.0); Monocytes % 5.2 % (1.7-12.7); Neutrophils % 64.6 % (38.7-73.9); Platelet Count 206 T/CUMM (130-400); Red Blood Count 4.47 MC/CUMM (3.8-5.5); Red Cell Distribution Width 14.8 % (9.3-17.3); White Blood Count 14.9 T/CUMM (4-12)
[2020-04-28] MEDS: CHOLECALCIFEROL 1,000 UNIT TABLET PO SCH (09:44)
[2020-04-28] MEDS: MULTIVITAMIN (CENTRUM) TABLET PO SCH (09:45)
[2020-04-28] MEDS: DOXYCYCLINE HYCLATE 100 MG CAPSULE PO SCH ×2 (09:45→22:40)
[2020-04-28] MEDS: MONTELUKAST 10 MG TABLET PO SCH (09:45)
[2020-04-28] MEDS: atenoloL 50 MG TABLET PO SCH (09:45)
[2020-04-28] MEDS: ROSUVASTATIN 20 MG TABLET PO SCH (09:45)
[2020-04-28] MEDS: DEXAMETHASONE 4 MG TABLET PO SCH (09:45)
[2020-04-28] MEDS: GABAPENTIN 300 MG CAPSULE PO SCH ×3 (09:45→22:40)
[2020-04-28] MEDS: ASPIRIN EC 81 MG TABLET PO SCH (09:45)
[2020-04-28] MEDS: FEXOFENADINE 180 MG TABLET PO SCH (09:45)
[2020-04-28] MEDS: LEVOTHYROXINE 50 MCG TABLET PO SCH (09:45)
[2020-04-28] MEDS: FENOFIBRATE 145 MG TABLET PO SCH (09:45)
[2020-04-28] MEDS: ZINC GLUCONATE 50 MG TABLET PO SCH (09:45)
[2020-04-28] MEDS: ASCORBIC ACID 500 MG TABLET PO SCH ×2 (09:46→22:40)
[2020-04-28] MEDS: allopurinoL 300 MG TABLET PO SCH (09:46)
[2020-04-28] MEDS: NYSTATIN 500,000 UNIT/5 ML UDCUP SWISH/SWAL SCH ×4 (09:46→22:39)
[2020-04-28] MEDS: TOPIRAMATE 25 MG TABLET PO SCH (09:46)
[2020-04-28] MEDS: ENOXAPARIN 40 MG/0.4 ML SYRINGE SUBCUT SCH (09:46)
[2020-04-28] MEDS: CALCIUM (CARBONATE)/VITAMIN D 600 MG-400 UNIT TABLET PO SCH (09:46)
[2020-04-28] MEDS: OXYBUTYNIN XL 5 MG TABLET PO SCH (09:46)
[2020-04-28] MEDS: cefTRIAXone 1,000 MG in SYRINGE 1 EACH IV SCH (09:47)
[2020-04-28] MEDS: MOMETASONE 50 MCG NASAL SPRAY 17 GM BOTTLE BOTH NARES SCH (09:47)
[2020-04-28] MEDS: BUDESONIDE/FORMOTEROL 160-4.5 INHALER 6 GM INH SCH ×2 (09:47→22:41)
[2020-04-28] MEDS: FAMOTIDINE 20 MG TABLET PO SCH ×2 (09:49→22:40)
[2020-04-28] MEDS: MELATONIN 3 MG TABLET PO PRN (22:39)
[2020-04-28] MEDS: CYCLOBENZAPRINE 10 MG TABLET PO SCH (22:40)
[2020-04-28] MEDS: PRAMIPEXOLE 0.25 MG TABLET PO SCH (22:41)
[2020-04-28] MEDS: guaiFENesin/DM ER 600-30 MG TABLET PO PRN (22:41)
[2020-04-29] MEDS: ALBUTEROL 2.5 MG/3 ML NEB RESP TX SCH ×4 (01:07→19:21)
[2020-04-29 06:49] LABS: Calcium 9.8 MG/DL (8.5-10.1); Osmolality,Calculated 290.1 MOS/KG (273-304)
[2020-04-29] MEDS: INSULIN LISPRO 100 UNIT/ML SUBCUT SCH ×4 (08:33→20:27)
[2020-04-29] MEDS: cefTRIAXone 1,000 MG in SYRINGE 1 EACH IV SCH (09:11)
[2020-04-29] MEDS: ASCORBIC ACID 500 MG TABLET PO SCH ×2 (09:12→20:29)
[2020-04-29] MEDS: DOXYCYCLINE HYCLATE 100 MG CAPSULE PO SCH ×2 (09:12→20:29)
[2020-04-29] MEDS: ROSUVASTATIN 20 MG TABLET PO SCH (09:12)
[2020-04-29] MEDS: ENOXAPARIN 40 MG/0.4 ML SYRINGE SUBCUT SCH (09:12)
[2020-04-29] MEDS: MONTELUKAST 10 MG TABLET PO SCH (09:12)
[2020-04-29] MEDS: FAMOTIDINE 20 MG TABLET PO SCH ×2 (09:13→20:29)
[2020-04-29] MEDS: CHOLECALCIFEROL 1,000 UNIT TABLET PO SCH (09:13)
[2020-04-29] MEDS: DEXAMETHASONE 4 MG TABLET PO SCH (09:15)
[2020-04-29] MEDS: ASPIRIN EC 81 MG TABLET PO SCH (09:15)
[2020-04-29] MEDS: FEXOFENADINE 180 MG TABLET PO SCH (09:15)
[2020-04-29] MEDS: TOPIRAMATE 25 MG TABLET PO SCH (09:15)
[2020-04-29] MEDS: LEVOTHYROXINE 50 MCG TABLET PO SCH (09:15)
[2020-04-29] MEDS: OXYBUTYNIN XL 5 MG TABLET PO SCH (09:15)
[2020-04-29] MEDS: NYSTATIN 500,000 UNIT/5 ML UDCUP SWISH/SWAL SCH ×4 (09:15→20:29)
[2020-04-29] MEDS: CALCIUM (CARBONATE)/VITAMIN D 600 MG-400 UNIT TABLET PO SCH (09:16)
[2020-04-29] MEDS: GABAPENTIN 300 MG CAPSULE PO SCH ×3 (09:16→20:29)
[2020-04-29] MEDS: atenoloL 50 MG TABLET PO SCH (09:16)
[2020-04-29] MEDS: FENOFIBRATE 145 MG TABLET PO SCH (09:16)
[2020-04-29] MEDS: ZINC GLUCONATE 50 MG TABLET PO SCH (09:16)
[2020-04-29] MEDS: MULTIVITAMIN (CENTRUM) TABLET PO SCH (09:16)
[2020-04-29] MEDS: BUDESONIDE/FORMOTEROL 160-4.5 INHALER 6 GM INH SCH ×2 (09:17→20:30)
[2020-04-29] MEDS: MOMETASONE 50 MCG NASAL SPRAY 17 GM BOTTLE BOTH NARES SCH (09:17)
[2020-04-29] MEDS: allopurinoL 300 MG TABLET PO SCH (09:17)
[2020-04-29] MEDS: CYCLOBENZAPRINE 10 MG TABLET PO SCH (20:29)
[2020-04-29] MEDS: PRAMIPEXOLE 0.25 MG TABLET PO SCH (20:29)
[2020-04-30 05:11] LABS: Basophils % 0.2 % (0.0-0.8); Hematocrit 39.9 VOL% (35.7-47.0); Hemoglobin 12.9 GM/DL (12.0-16.0); Immature Granulocytes % 0.9 %; Lymphocytes # 2.7 10*3/uL (1.4-4.0); Lymphocytes % 24.9 % (21.3-54.2); Mean Corpuscular HGB Conc 32.3 GM/DL (32-36); Mean Corpuscular Volume 97.8 FL (87-102); Mean Platelet Volume 10.8 FL (9.6-12.0); Monocytes % 5.9 % (1.7-12.7); Neutrophils % 68.1 % (38.7-73.9); Platelet Count 171 T/CUMM (130-400); Red Blood Count 4.08 MC/CUMM (3.8-5.5); Red Cell Distribution Width 14.7 % (9.3-17.3); White Blood Count 10.9 T/CUMM (4-12)
[2020-04-30] MEDS: ALBUTEROL 2.5 MG/3 ML NEB RESP TX SCH ×4 (07:12→19:22)
[2020-04-30] MEDS: INSULIN LISPRO 100 UNIT/ML SUBCUT SCH ×4 (07:16→21:10)
[2020-04-30] MEDS: GABAPENTIN 300 MG CAPSULE PO SCH ×3 (08:19→21:15)
[2020-04-30] MEDS: FENOFIBRATE 145 MG TABLET PO SCH (08:20)
[2020-04-30] MEDS: CHOLECALCIFEROL 1,000 UNIT TABLET PO SCH (08:20)
[2020-04-30] MEDS: ZINC GLUCONATE 50 MG TABLET PO SCH (08:20)
[2020-04-30] MEDS: ASPIRIN EC 81 MG TABLET PO SCH (08:20)
[2020-04-30] MEDS: ENOXAPARIN 40 MG/0.4 ML SYRINGE SUBCUT SCH (08:20)
[2020-04-30] MEDS: MONTELUKAST 10 MG TABLET PO SCH (08:20)
[2020-04-30] MEDS: MULTIVITAMIN (CENTRUM) TABLET PO SCH (08:20)
[2020-04-30] MEDS: ROSUVASTATIN 20 MG TABLET PO SCH (08:20)
[2020-04-30] MEDS: atenoloL 50 MG TABLET PO SCH (08:21)
[2020-04-30] MEDS: DOXYCYCLINE HYCLATE 100 MG CAPSULE PO SCH ×2 (08:21→21:06)
[2020-04-30] MEDS: LEVOTHYROXINE 50 MCG TABLET PO SCH (08:21)
[2020-04-30] MEDS: cefTRIAXone 1,000 MG in SYRINGE 1 EACH IV SCH (08:21)
[2020-04-30] MEDS: DEXAMETHASONE 4 MG TABLET PO SCH (08:21)
[2020-04-30] MEDS: FEXOFENADINE 180 MG TABLET PO SCH (08:21)
[2020-04-30] MEDS: NYSTATIN 500,000 UNIT/5 ML UDCUP SWISH/SWAL SCH ×4 (08:21→21:06)
[2020-04-30] MEDS: ASCORBIC ACID 500 MG TABLET PO SCH ×2 (08:21→21:11)
[2020-04-30] MEDS: BUDESONIDE/FORMOTEROL 160-4.5 INHALER 6 GM INH SCH ×2 (08:22→21:13)
[2020-04-30] MEDS: FAMOTIDINE 20 MG TABLET PO SCH ×2 (08:22→21:15)
[2020-04-30] MEDS: MOMETASONE 50 MCG NASAL SPRAY 17 GM BOTTLE BOTH NARES SCH (08:22)
[2020-04-30] MEDS: allopurinoL 300 MG TABLET PO SCH (08:22)
[2020-04-30] MEDS: OXYBUTYNIN XL 5 MG TABLET PO SCH (08:22)
[2020-04-30] MEDS: CALCIUM (CARBONATE)/VITAMIN D 600 MG-400 UNIT TABLET PO SCH (08:22)
[2020-04-30] MEDS: TOPIRAMATE 25 MG TABLET PO SCH (08:22)
[2020-04-30] MEDS: PRAMIPEXOLE 0.25 MG TABLET PO SCH (21:05)
[2020-04-30] MEDS: CYCLOBENZAPRINE 10 MG TABLET PO SCH (21:05)
[2020-05-01] MEDS: ALBUTEROL 2.5 MG/3 ML NEB RESP TX SCH ×4 (00:02→19:40)
[2020-05-01] MEDS: INSULIN LISPRO 100 UNIT/ML SUBCUT SCH ×4 (07:57→21:36)
[2020-05-01] MEDS: ENOXAPARIN 40 MG/0.4 ML SYRINGE SUBCUT SCH (09:14)
[2020-05-01] MEDS: ASCORBIC ACID 500 MG TABLET PO SCH ×2 (09:14→21:35)
[2020-05-01] MEDS: LEVOTHYROXINE 50 MCG TABLET PO SCH (09:15)
[2020-05-01] MEDS: NYSTATIN 500,000 UNIT/5 ML UDCUP SWISH/SWAL SCH ×4 (09:15→21:35)
[2020-05-01] MEDS: FEXOFENADINE 180 MG TABLET PO SCH (09:15)
[2020-05-01] MEDS: TOPIRAMATE 25 MG TABLET PO SCH (09:15)
[2020-05-01] MEDS: MONTELUKAST 10 MG TABLET PO SCH (09:15)
[2020-05-01] MEDS: ROSUVASTATIN 20 MG TABLET PO SCH (09:15)
[2020-05-01] MEDS: FENOFIBRATE 145 MG TABLET PO SCH (09:15)
[2020-05-01] MEDS: ZINC GLUCONATE 50 MG TABLET PO SCH (09:15)
[2020-05-01] MEDS: CALCIUM (CARBONATE)/VITAMIN D 600 MG-400 UNIT TABLET PO SCH (09:16)
[2020-05-01] MEDS: atenoloL 50 MG TABLET PO SCH (09:16)
[2020-05-01] MEDS: FAMOTIDINE 20 MG TABLET PO SCH ×2 (09:17→21:35)
[2020-05-01] MEDS: OXYBUTYNIN XL 5 MG TABLET PO SCH (09:17)
[2020-05-01] MEDS: DEXAMETHASONE 4 MG TABLET PO SCH (09:17)
[2020-05-01] MEDS: MULTIVITAMIN (CENTRUM) TABLET PO SCH (09:17)
[2020-05-01] MEDS: CHOLECALCIFEROL 1,000 UNIT TABLET PO SCH (09:17)
[2020-05-01] MEDS: ASPIRIN EC 81 MG TABLET PO SCH (09:17)
[2020-05-01] MEDS: allopurinoL 300 MG TABLET PO SCH (09:17)
[2020-05-01] MEDS: DOXYCYCLINE HYCLATE 100 MG CAPSULE PO SCH ×2 (09:17→21:35)
[2020-05-01] MEDS: GABAPENTIN 300 MG CAPSULE PO SCH ×3 (09:17→21:35)
[2020-05-01] MEDS: MOMETASONE 50 MCG NASAL SPRAY 17 GM BOTTLE BOTH NARES SCH (09:18)
[2020-05-01] MEDS: BUDESONIDE/FORMOTEROL 160-4.5 INHALER 6 GM INH SCH ×2 (09:19→21:36)
[2020-05-01] MEDS: CYCLOBENZAPRINE 10 MG TABLET PO SCH (21:34)
[2020-05-01] MEDS: PRAMIPEXOLE 0.25 MG TABLET PO SCH (21:35)
[2020-05-02] MEDS: ALBUTEROL 2.5 MG/3 ML NEB RESP TX SCH ×4 (01:53→19:30)
[2020-05-02] MEDS: ENOXAPARIN 40 MG/0.4 ML SYRINGE SUBCUT SCH (08:31)
[2020-05-02] MEDS: CHOLECALCIFEROL 1,000 UNIT TABLET PO SCH (08:31)
[2020-05-02] MEDS: ZINC GLUCONATE 50 MG TABLET PO SCH (08:31)
[2020-05-02] MEDS: NYSTATIN 500,000 UNIT/5 ML UDCUP SWISH/SWAL SCH ×4 (08:31→21:00)
[2020-05-02] MEDS: FENOFIBRATE 145 MG TABLET PO SCH (08:31)
[2020-05-02] MEDS: GABAPENTIN 300 MG CAPSULE PO SCH ×3 (08:31→20:56)
[2020-05-02] MEDS: ASPIRIN EC 81 MG TABLET PO SCH (08:32)
[2020-05-02] MEDS: MONTELUKAST 10 MG TABLET PO SCH (08:32)
[2020-05-02] MEDS: ROSUVASTATIN 20 MG TABLET PO SCH (08:32)
[2020-05-02] MEDS: DOXYCYCLINE HYCLATE 100 MG CAPSULE PO SCH ×2 (08:32→20:56)
[2020-05-02] MEDS: ASCORBIC ACID 500 MG TABLET PO SCH ×2 (08:32→20:59)
[2020-05-02] MEDS: FAMOTIDINE 20 MG TABLET PO SCH ×2 (08:32→21:00)
[2020-05-02] MEDS: FEXOFENADINE 180 MG TABLET PO SCH (08:33)
[2020-05-02] MEDS: MULTIVITAMIN (CENTRUM) TABLET PO SCH (08:33)
[2020-05-02] MEDS: OXYBUTYNIN XL 5 MG TABLET PO SCH (08:33)
[2020-05-02] MEDS: DEXAMETHASONE 4 MG TABLET PO SCH (08:33)
[2020-05-02] MEDS: TOPIRAMATE 25 MG TABLET PO SCH (08:33)
[2020-05-02] MEDS: CALCIUM (CARBONATE)/VITAMIN D 600 MG-400 UNIT TABLET PO SCH (08:33)
[2020-05-02] MEDS: allopurinoL 300 MG TABLET PO SCH (08:33)
[2020-05-02] MEDS: atenoloL 50 MG TABLET PO SCH (08:34)
[2020-05-02] MEDS: INSULIN LISPRO 100 UNIT/ML SUBCUT SCH ×4 (08:35→21:06)
[2020-05-02] MEDS: MOMETASONE 50 MCG NASAL SPRAY 17 GM BOTTLE BOTH NARES SCH (08:44)
[2020-05-02] MEDS: BUDESONIDE/FORMOTEROL 160-4.5 INHALER 6 GM INH SCH ×2 (08:45→21:01)
[2020-05-02] MEDS: LEVOTHYROXINE 50 MCG TABLET PO SCH (14:18)
[2020-05-02] MEDS: MELATONIN 3 MG TABLET PO PRN (20:58)
[2020-05-02] MEDS: CYCLOBENZAPRINE 10 MG TABLET PO SCH (20:59)
[2020-05-02] MEDS: PRAMIPEXOLE 0.25 MG TABLET PO SCH (21:00)
[2020-05-03] MEDS: ALBUTEROL 2.5 MG/3 ML NEB RESP TX SCH ×3 (00:23→14:02)
[2020-05-03] MEDS: ENOXAPARIN 40 MG/0.4 ML SYRINGE SUBCUT SCH (08:04)
[2020-05-03] MEDS: OXYBUTYNIN XL 5 MG TABLET PO SCH (08:05)
[2020-05-03] MEDS: FENOFIBRATE 145 MG TABLET PO SCH (08:05)
[2020-05-03] MEDS: atenoloL 50 MG TABLET PO SCH (08:05)
[2020-05-03] MEDS: LEVOTHYROXINE 50 MCG TABLET PO SCH (08:05)
[2020-05-03] MEDS: NYSTATIN 500,000 UNIT/5 ML UDCUP SWISH/SWAL SCH ×2 (08:05→14:02)
[2020-05-03] MEDS: CHOLECALCIFEROL 1,000 UNIT TABLET PO SCH (08:05)
[2020-05-03] MEDS: allopurinoL 300 MG TABLET PO SCH (08:05)
[2020-05-03] MEDS: ASCORBIC ACID 500 MG TABLET PO SCH (08:06)
[2020-05-03] MEDS: ASPIRIN EC 81 MG TABLET PO SCH (08:06)
[2020-05-03] MEDS: FAMOTIDINE 20 MG TABLET PO SCH (08:06)
[2020-05-03] MEDS: ZINC GLUCONATE 50 MG TABLET PO SCH (08:06)
[2020-05-03] MEDS: ROSUVASTATIN 20 MG TABLET PO SCH (08:06)
[2020-05-03] MEDS: MULTIVITAMIN (CENTRUM) TABLET PO SCH (08:06)
[2020-05-03] MEDS: FEXOFENADINE 180 MG TABLET PO SCH (08:06)
[2020-05-03] MEDS: GABAPENTIN 300 MG CAPSULE PO SCH (08:07)
[2020-05-03] MEDS: BUDESONIDE/FORMOTEROL 160-4.5 INHALER 6 GM INH SCH (08:07)
[2020-05-03] MEDS: DEXAMETHASONE 4 MG TABLET PO SCH (08:07)
[2020-05-03] MEDS: MOMETASONE 50 MCG NASAL SPRAY 17 GM BOTTLE BOTH NARES SCH (08:07)
[2020-05-03] MEDS: CALCIUM (CARBONATE)/VITAMIN D 600 MG-400 UNIT TABLET PO SCH (08:07)
[2020-05-03] MEDS: TOPIRAMATE 25 MG TABLET PO SCH (08:07)
[2020-05-03] MEDS: DOXYCYCLINE HYCLATE 100 MG CAPSULE PO SCH (08:07)
[2020-05-03] MEDS: MONTELUKAST 10 MG TABLET PO SCH (08:07)
[2020-05-03] MEDS: INSULIN LISPRO 100 UNIT/ML SUBCUT SCH ×2 (08:08→13:45)
[2020-05-03 11:48] VITALS: BP 154/69
== END 2020-05-03 14:00 | disposition home health service (06) | DRG 177 ==
LOC: N.ED 14:16 → N.EDINP 16:34 → SUATTDRO 16:34 → N.2E 04-15 18:55 → N.5E 04-25 14:26
PROVIDERS: ADMIT Internal Medicine; ATTEND Emergency Medicine